=== PATIENT | female | born 1980 | race Caucasian/White ===

== ENCOUNTER → 2016-04-25 | Outpatient (CLI) | payer BC ==
--- NOTE | 2016-04-25 12:47 | US ---
EXAMINATION TYPE: US pelvic complete DATE OF EXAM: 04/25/2016 12:22 PM COMPARISON: NONE CLINICAL HISTORY: PCOS E28.2 Pelvic Pain R10.30. pelvic pain and discomfort. TECHNIQUE: Transabdominal pelvic ultrasound. Date of LMP: 02/24/2016 EXAM MEASUREMENTS: Uterus: 7.0 x 3.0 x 4.1 cm Endometrial Stripe: 0.6 cm Right Ovary: 2.0 x 2.5 x 0.9 cm Left Ovary: 2.7 x 1.9 x 1.3 cm cm TECHNOLOGIST IMPRESSION: wnl 1. Uterus: Anteverted wnl 2. Endometrium: patient does not have regular cycles. 3. Right Ovary: wnl 4. Left Ovary: wnl 5. Bilateral Adnexa: wnl 6. Posterior cul-de-sac: no free fluid Patient came with an order for pelvic and transvaginal ultrasound, patient chose not to have the yost svaginal done today, only the pelvic on top as everything was seen. IMPRESSION: No distinct abnormality seen.
== END | disposition home or self-care (01) ==
LOC: RADUSWWP 12:07
PROVIDERS: ATTEND Obstetrics & Gynecology Gynecology
DX: R10.2 Pelvic and perineal pain (principal); E28.2 Polycystic ovarian syndrome
CPT/HCPCS: 36415; 76856; 82533; 82670; 83001; 83002; 83525; 84146; 84270; 84402; 84403; 84443; 84702

== ENCOUNTER → 2016-04-25 | Outpatient (CLI) | payer BC ==
[2016-04-25 16:54] LABS: Follicle Stimulating Hormone 1.3 mIU/mL; HCG,Quantitative Serum <2.4 mIU/mL; Prolactin 33.9 ng/mL (3.0-18.6)
[2016-04-25 17:11] LABS: Estradiol 19 pg/mL
[2016-04-25 21:23] LABS: Sex Horm Bind Glob 256.3 nmol/L (18.0-166.0)
== END | disposition home or self-care (01) ==
LOC: LABWHC1 08:06
PROVIDERS: ATTEND Obstetrics & Gynecology Gynecology
DX: E28.2 Polycystic ovarian syndrome (principal)
CPT/HCPCS: 36415; 82533; 82670; 83001; 83002; 83525; 84146; 84270; 84402; 84403; 84443; 84702